=== PATIENT | male | born 1945 ===

== ENCOUNTER 2017-01-24 06:39 | Day surgery (SDC) | payer MEDICARE, OTHER ==
[2017-01-19 10:10] VITALS: BMI 27.4
[2017-01-24] MEDS ORDERED: Propofol 10 mg/ml Inj (20 ML) ONE (07:13)
[2017-01-24] MEDS ORDERED: Lidocaine 2% Jelly (Uro-Jet) ONE (08:10)
[2017-01-24] MEDS ORDERED: cefTRIAXone IV 1 gm in Dextros 50 ML IVPB ONE (08:10)
[2017-01-24] MEDS ORDERED: Lactated Ringer's 1,000 ML IV ONE (08:30)
[2017-01-24] MEDS: HYDROmorphone 0.5 mg/0.5 ml ISec IVP PRN ×4 (09:27→10:11)
--- NOTE | 2017-01-24 10:25 | OP ---
PROCEDURE DATE: 01/24/2017 PREOPERATIVE DIAGNOSIS: Urethral stricture. POSTOPERATIVE DIAGNOSIS: Urethral stricture. PROCEDURE: Cystoscopy, optical urethrotomy, and insertion of Alexis catheter. SURGEON: Andi Mario MD. DESCRIPTION OF PROCEDURE: The patient brought to the operating room, premedicated with 1 gram of Devyn ephin IV piggyback, placed under anesthesia in lithotomy position. A [employer] optical urethrotome was i ntroduced into the distal urethra using the obturator and then the working element was inserted. We could see a stricture proximally. A guidewire was passed up to the bladder. The blade was extended and we incised for a distance of about 1 cm or so to open up the stricture. We then attempted to int roduce the instrument into the bladder, but there was some tightness at the prostatic apex and I did not want to force the instrument unnecessarily. Therefore, the urethrotome was removed, leaving the guidewire in place, its placement in the bladder confirmed fluoroscopically. We then planned to intr oduce a [employer] [employer] [place] catheter. A 16 Coun[place]ill just would not pass through the previously mentioned snug ar ea and so I took a 14-Slovenian coude catheter, cut the tip and was able to use this like a [employer] [place] [employer] [place], pas sed it over the [id number] atraumatically into the bladder. Return was free and clear and irrigated well after the balloon was filled in the Alexis catheter. The patient tolerated the procedure well. Andi Mario MD cc: 66 TT: 01/24/2017 10:24:23 tn
[2017-01-24] MEDS ORDERED: Lactated Ringer's 500 ML IV ONE (10:38)
--- NOTE | 2017-01-24 15:27 | RAD ---
Fluoroscopy 01/24/2017. History: Urethral stricture. Two AP fluoroscopic views of the pelvis performed. Image labeled 1 demonstrates apparent guidewire overlying the mid and right parasagittal true pelvis. Image labeled 3 demonstrates catheter overlying the proximal 1/2 -- 1/3 guidewire. Please refer to operative report for additional details. Fluoroscopy time utilized up to 1 hour. Impression: Apparent fluoroscopic guided placement of a bladder catheter. Please refer to operative report for additional details.
[2017-01-24 16:17] VITALS: RESP 16
[2017-01-24 16:19] VITALS: BP 133/54; PULSE 66; TEMP 97.6; O2SAT 97
== END 2017-01-24 12:49 | disposition home or self-care (01) ==
LOC: C.SDS 06:39
PROVIDERS: ATTEND Urology
DX: N35.9 Urethral stricture, unspecified (principal)
CPT/HCPCS: 52276; 76000; J0696; J1170; J7120

== ENCOUNTER 2017-01-31 07:01 | Day surgery (SDC) | payer MEDICARE, OTHER ==
[2017-01-19 10:09] VITALS: BMI 27.4
[2017-01-31] MEDS ORDERED: Propofol 10 mg/ml Inj (20 ML) ONE (08:39)
[2017-01-31] MEDS ORDERED: Midazolam 2 MG/2 ML VIAL ONE (08:39)
[2017-01-31] MEDS ORDERED: Gentamicin 160 MG in Sodium Chloride 0.9% 100 ML IVPB ONE (09:28)
[2017-01-31] MEDS ORDERED: Lactated Ringer's 1,000 ML IV ONE ×2 (09:30→10:15)
[2017-01-31] MEDS ORDERED: Lidocaine 2% Jelly (Uro-Jet) ONE (09:33)
[2017-01-31] MEDS: cefTRIAXone IV 1 gm in Dextros 50 ML IVPB ONE ×2 (09:39→09:40)
[2017-01-31] MEDS ORDERED: HYDROmorphone 0.5 mg/0.5 ml ISec IVP PRN (10:08)
[2017-01-31] MEDS ORDERED: Lactated Ringer's 1,000 ML IV SCH (10:15)
--- NOTE | 2017-01-31 10:25 | OP ---
PROCEDURE DATE: 01/31/2017 PREOPERATIVE DIAGNOSIS: Urethral stricture. POSTOPERATIVE DIAGNOSIS: Urethral stricture. PROCEDURE: Cystoscopy and dilatation of urethral stricture. SURGEON: Andi Mario MD. DESCRIPTION OF PROCEDURE: The patient was brought to the operating room, given MAC anesthesia. Was provided with 1 gram of Rocephin and 160 mg of gentamicin preop and placed in lithotomy position. Th e indwelling Alexis catheter was removed. An 18-[place] cystoscope was introduced per urethra and we w ere able to easily transversely into the bladder. 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 The prostate was obstructed with a 3-1/2 to 4 cm length urethra. Upon furt her withdrawal of the scope, the area of previous stenosis was seen. Most of it was quite open, but there was one area that was still moderately stenotic. I introduced after removing the cystoscope, a 16 [place] red rubber catheter and then successive dilatation up to 22 [place] using increasing sizes of Alexis catheters. The introduction was totally atraumatic, with only the last catheter, the 22-Mike nch, being slightly snug, and even this did not require any excessive force to introduce it into the bladder. At this point, I removed that last catheter and he will be going home catheter-free. The p atient tolerated the procedure well. Andi Mario MD cc: 66 TT: 01/31/2017 10:24:47 gabriel
[2017-01-31 11:29] VITALS: O2SAT 97
[2017-01-31 11:59] VITALS: BP 124/77; PULSE 58; RESP 16; TEMP 98.4
== END 2017-01-31 12:02 | disposition home or self-care (01) ==
LOC: C.SDS 07:01
PROVIDERS: ATTEND Urology
DX: N35.9 Urethral stricture, unspecified (principal); N30.80 Other cystitis without hematuria; T83.518A Infection and inflammatory reaction due to other urinary catheter, initial encounter; Y84.6 Urinary catheterization as the cause of abnormal reaction of the patient, or of later complication, without mention of misadventure at the time of the procedure
CPT/HCPCS: 52281; J0696; J1580; J7120

== ENCOUNTER 2017-05-31 07:14 | Day surgery (SDC) | payer MEDICARE, OTHER ==
[2017-01-19 10:09] VITALS: BMI 27.4
[2017-05-31 08:13] VITALS: RESP 19
[2017-05-31] MEDS ORDERED: Propofol 10 mg/ml Inj (20 ML) ONE (09:22)
[2017-05-31] MEDS ORDERED: Lactated Ringer's 500 ML IV SCH (09:30)
[2017-05-31 15:59] VITALS: TEMP 97.1
[2017-05-31 16:01] VITALS: O2SAT 99
[2017-05-31 16:07] VITALS: BP 113/74; PULSE 56
== END 2017-05-31 11:20 | disposition home or self-care (01) ==
LOC: C.ENDO 07:14
PROVIDERS: ATTEND Internal Medicine Gastroenterology
DX: K29.70 Gastritis, unspecified, without bleeding (principal); K22.10 Ulcer of esophagus without bleeding; K44.9 Diaphragmatic hernia without obstruction or gangrene
CPT/HCPCS: 43239; 88305; J2704; J3010; J7120

== ENCOUNTER 2017-08-16 08:11 | Day surgery (SDC) | payer OTHER ==
[2017-01-19 10:09] VITALS: BMI 27.4
[2017-08-16] MEDS ORDERED: Gentamicin 160 MG in Sodium Chloride 0.9% 100 ML IVPB ONE (08:41)
[2017-08-16] MEDS ORDERED: Lactated Ringer's 1,000 ML IV ONE ×2 (09:28)
[2017-08-16] MEDS: cefTRIAXone IV 1 gm in Dextros 50 ML IVPB ONE ×2 (09:29→09:50)
[2017-08-16] MEDS ORDERED: Propofol 10 mg/ml Inj (20 ML) ONE (09:47)
[2017-08-16] MEDS ORDERED: Midazolam 2 MG/2 ML VIAL ONE (09:47)
[2017-08-16] MEDS ORDERED: Lactated Ringer's 1,000 ML IV SCH (10:45)
[2017-08-16] MEDS ORDERED: HYDROmorphone 0.5 mg/0.5 ml ISec IVP PRN (10:45)
[2017-08-16 11:59] VITALS: RESP 16; TEMP 97.4
[2017-08-16 12:27] VITALS: BP 166/94; PULSE 58; O2SAT 99
[2017-08-16 12:38] LABS: RBC URINE 640 /hpf (0-3); URINE BACTERIA RARE (<OCC); URINE BILIRUBIN NEGATIVE (NEGATIVE); URINE BLOOD 3+ (NEGATIVE); URINE COLOR Yellow (YELLOW); URINE GLUCOSE (UA) NORMAL (Normal); URINE KETONE NEGATIVE (NEGATIVE); URINE LEUKOCYTE ESTERASE NEG Leu/uL (Negative); URINE PROTEIN NEGATIVE (NEGATIVE); URINE UROBILINOGEN NORMAL mg/dL (0.2-1.0); WBC URINE 1 /hpf (0-5)
--- NOTE | 2017-08-16 13:40 | OP ---
PROCEDURE DATE: 08/16/2017 PREOPERATIVE DIAGNOSIS: Ureteral stricture. POSTOPERATIVE DIAGNOSES: Ureteral stricture and benign prostatic hyperplasia. PROCEDURE: Cystoscopy and optical internal urethrotomy with insertion of Alexis catheter. SURGEON: Andi Mario MD DESCRIPTION OF PROCEDURE: The patient was premedicated with Rocephin 1 g IV piggyback, placed under LMA anesthesia in lithotomy position, prepped and draped in the usual fashion. A cystoscope was introduced per urethra and a proximal to midurethral stricture was noted; it was patent, but of course, could not be advanced beyond this point. Under direct vision and using fluoroscopic confirmation, a metal guide wire was placed through the stricture and into the bladder. The cystoscope was removed and then an optical urethrotome was advanced alongside the guide wide and we were able extend the Knife blade into 12 o' clock position in size and area of about 2 cm in length. We were now easily able to traverse this area and enter the bladder. The bladder was entirely normal. Urine was sent for urinalysis and culture and sensitivity. The prostate showed some hypertrophy with an early median lobe obstruction as well. We now re-examined the area of the stricture and it was now wide open. The scope was removed and then a 22-[place] 2-Way Alexis catheter introduced into the bladder and once its presence was confirmed, the balloon filled and the guide wire removed. The patient tolerated the procedure well. Blood loss was 2 mL, utmost. Andi Mario MD
== END 2017-08-16 12:15 | disposition home or self-care (01) ==
LOC: C.SDS 08:11
PROVIDERS: ATTEND Urology
DX: N13.5 Crossing vessel and stricture of ureter without hydronephrosis (principal); N40.1 Benign prostatic hyperplasia with lower urinary tract symptoms
CPT/HCPCS: 52276; 81001; 87086; C1769; J0696; J1170; J7120